=== PATIENT | male | born 2000 | race Caucasian/White ===

== ENCOUNTER 2020-06-05 23:44 | Emergency (ER) | payer SELFPAY ==
[~2020-06-05] VITALS: Ht 180.3 cm; Wt 75.0 kg
[2020-06-06 00:20] LABS: ALBUMIN 4.8 gm/dL (3.5-5.0); BILIRUBIN,TOTAL 0.7 mg/dL (0.0-1.0); CALCIUM 8.4 mg/dL (8.4-10.2); CREATININE, serum 1.01 (0.66-1.25); INR 1.1 (0.8-3.0); POTASSIUM 3.8 mmol/L (3.4-5.0); PROTHROMBIN TIME 11.9 SECONDS (9.7-12.8); TOTAL PROTEIN 8.2 gm/dL (6.4-8.2)
[2020-06-06 00:23] LABS: BASO # 0.1 (0.0-0.2); BASO % 0.6 % (0.0-2.0); EOS # 0.5 (0.0-0.7); EOS % 5.5 % (0-4.0); GRAN # 5.7 (1.4-6.5); GRAN % 62.6 % (42.2-75.2); HEMATOCRIT 45.6 % (36.0-47.0); HEMOGLOBIN 15.7 g/dl (12.5-16.1); LYMPH # 2.3 (1.2-3.4); LYMPH % 25.7 % (20.0-51.0); MEAN CELL VOLUME 90 fl (80.0-95.0); MEAN CORPUSCULAR HEMOGLOBIN 31 pg (26.0-32.0); MEAN CORPUSCULAR HGB CONC 34 g/dl (33.0-37.0); MONO # 0.5 (0.1-0.6); PLATELET COUNT 287 K/mm3 (130-400); RED BLOOD COUNT 5.05 M/mm3 (4.20-5.60); REDCELL DISTRIBUTION WIDTH-CV 12.7 % (11.5-14.5)
[2020-06-06 02:05] LABS: ARTERIAL BLD GAS O2 SATURATION 99.4 % (92-100); ARTERIAL BLOOD GAS BASE EXCESS -4.8 (-2-2); ARTERIAL BLOOD GAS HCO3 20.7 meq/L (22-26); ARTERIAL BLOOD GAS PCO2 40.2 mmHg (35-45); ARTERIAL BLOOD GAS pH 7.33 (7.35-7.45)
[2020-06-06 02:06] LABS: ARTERIAL BLOOD GAS PO2 226.4 mmHg (80-100)
[2020-06-06 02:12] LABS: TRICYCLIC ANTIDEPRESS URINE NEGATIVE
[2020-06-06 02:35] VITALS: BP 82/43; PULSE 89; TEMP 98.7
== END 2020-06-06 02:35 | disposition short-term general hospital (02) ==
LOC: COL.ER 23:44
PROVIDERS: Emergency Medicine; Physician Assistant
DX: S06.0X9A Concussion with loss of consciousness of unspecified duration, initial encounter (principal); S01.01XA Laceration without foreign body of scalp, initial encounter; F10.129 Alcohol abuse with intoxication, unspecified; Y90.8 Blood alcohol level of 240 mg/100 ml or more; W19.XXXA Unspecified fall, initial encounter; W22.8XXA Striking against or struck by other objects, initial encounter; Y92.009 Unspecified place in unspecified non-institutional (private) residence as the place of occurrence of the external cause
CPT/HCPCS: J0330; J2704; J3010; J7030